=== PATIENT | female | born 1945 | race Caucasian/White ===

== ENCOUNTER → 2016-10-20 | Outpatient (CLI) | payer MEDICARE, OTHER ==
[~2016-10-20] MED LIST: APIX5TAB PO; ASPI-621 PO; CEFD300C2 PO; DENO60DI SQ; DIGO125T PO; FURO-93 PO; GABA300C10 PO; HYDR-3240 PO; HYDR12.53 PO; INSU100V10 SC; INSU100V5 SQ-INSULIN; ISOS20TA3 PO; ISOS60TA36 PO; LACT1CAP24 PO; LAMO100T5 PO; LAMO200T3 PO; LISI-167 PO; LISI-170 PO; LISI-467 PO; METO200T2 PO; METO25TA35 PO; METO50TA82 PO; METR500T PO; NIFE30TA PO; NIFE60TA19 PO; NITR0.4T SL; NPH,100V4 SC; OMEG1CAP12 PO; OMEP20CA9 PO; PRAV80TA PO; PRAV80TA2 PO; ROSU20TA PO; SPIR25TA PO; SPIR25TA3 PO; SPIR50TA2 PO; WARF1TAB PO; WARF2.5T PO; WARF3TAB7 PO-COUM
[2016-10-20 15:41] LABS: HEMOGLOBIN 13.9 g/dL (11.7-16.4)
[2016-10-20 16:00] LABS: C-REACTIVE PROTEIN, QUANT 4.1 mg/dL (0.02-0.49)
== END | disposition home or self-care (01) ==
LOC: CFH 14:52
DX: R10.32 Left lower quadrant pain (principal)
CPT/HCPCS: 36415; 82150; 83690; 85025; 85651; 86140

== ENCOUNTER → 2016-11-19 | Outpatient (CLI) | payer MEDICARE, OTHER ==
[2016-11-19 13:26] LABS: ASPARTATE AMINO TRANSFERASE 38 U/L (15-37); BLOOD UREA NITROGEN 21 mg/dL (7-18)
== END | disposition home or self-care (01) ==
LOC: CFH 10:37
PROVIDERS: ATTEND Internal Medicine Cardiovascular Disease
DX: I10 Essential (primary) hypertension (principal); E11.9 Type 2 diabetes mellitus without complications; E78.2 Mixed hyperlipidemia; E78.5 Hyperlipidemia, unspecified
CPT/HCPCS: 36415; 80053; 80162; 82043; 83036; 85025

== ENCOUNTER → 2016-11-24 | Outpatient (CLI) | payer MEDICARE, OTHER ==
[~2016-11-24] MED LIST changes: -CEFD300C2 PO; +CEFD300C37 PO
== END | disposition home or self-care (01) ==
LOC: CFH 10:13
PROVIDERS: ATTEND Internal Medicine Cardiovascular Disease
DX: J84.10 Pulmonary fibrosis, unspecified (principal); E04.1 Nontoxic single thyroid nodule
CPT/HCPCS: 71250

== ENCOUNTER → 2016-12-02 | Outpatient (CLI) | payer MEDICARE, OTHER | END | disposition home or self-care (01) | LOC: CFH 09:07 | PROVIDERS: ATTEND Registered Nurse | DX: M50.221 Other cervical disc displacement at C4-C5 level (principal); M50.222 Other cervical disc displacement at C5-C6 level; M50.10 Cervical disc disorder with radiculopathy, unspecified cervical region; M48.02 Spinal stenosis, cervical region; M40.292 Other kyphosis, cervical region; M25.78 Osteophyte, vertebrae | CPT/HCPCS: 72141 ==

== ENCOUNTER → 2017-01-15 | Outpatient (CLI) | payer MEDICARE, OTHER | END | disposition home or self-care (01) | LOC: CFH 13:13 → EDSTATUS 13:45 | PROVIDERS: ATTEND Nurse Practitioner Family | DX: Z12.31 Encounter for screening mammogram for malignant neoplasm of breast (principal) | CPT/HCPCS: G0202 ==

== ENCOUNTER 2017-01-31 15:27 | Inpatient (IN) | payer MEDICARE, OTHER ==
[~2017-01-31] VITALS: Ht 167.6 cm; Wt 78.9 kg
[~2017-01-31 15:27] MED LIST changes: -OMEG1CAP12 PO; +OMEG1CAP23 PO
[2017-01-31] MEDS ORDERED: SODIUM CHLORIDE 0.9% 1,000 ML IV ONE (16:19)
[2017-01-31] MEDS ORDERED: ASPIRIN 81 MG TABLET CHEW PO ONE (16:30)
[2017-01-31] MEDS ORDERED: SODIUM CHLORIDE FLUSH 10ML SYR IVF ONE (16:30)
[2017-01-31] MEDS ORDERED: ASPIRIN 81 MG TABLET CHEW ONE (16:57)
[2017-01-31 17:26] LABS: ASPARTATE AMINO TRANSFERASE 41 U/L (15-37); BLOOD UREA NITROGEN 19 mg/dL (7-18)
[2017-01-31 17:32] LABS: IS PT STATUS REG ER OR PRE ER? YES
[2017-01-31 18:03] LABS: PATH.CAST-FLAG NOT PRESENT; SPERM-FLAG NOT PRESENT; SRC-FLAG NOT PRESENT; XTAL-FLAG NOT PRESENT; YLC-FLAG NOT PRESENT
[2017-01-31] MEDS ORDERED: FENO160T PO (18:34)
[2017-01-31] MEDS: INSULIN REGULAR 100 UNITS/ML, 3ML VIAL SQ-INSULIN SCH (19:30)
[2017-01-31] MEDS ORDERED: LORazepam 1MG TABLET PO PRN (19:30)
[2017-01-31] MEDS ORDERED: DOCUSATE 100 MG CAPSULE PO PRN (19:30)
[2017-01-31] MEDS ORDERED: morphine SULFATE 10 MG/ML, 1ML IVPush PRN (19:30)
[2017-01-31] MEDS ORDERED: NITROGLYCERIN 0.4 MG BOTTLE (25 TABS) SL PRN (19:30)
[2017-01-31] MEDS ORDERED: LABETALOL 5MG/ML 40ML VIAL IVPush PRN (19:30)
[2017-01-31] MEDS: LAMOTRIGINE 100 MG TABLET PO SCH (19:30)
[2017-01-31 19:46] VITALS: BP 156/84
[2017-01-31] MEDS: ACETAMINOPHEN 325 MG TABLET PO PRN (20:24)
[2017-01-31] MEDS ORDERED: APIXABAN 5 MG TABLET PO SCH (21:00)
[2017-01-31 22:51] LABS: IS PT STATUS REG ER OR PRE ER? NO
[2017-01-31] MEDS: LAMOTRIGINE 200 MG TABLET PO SCH (23:07)
[2017-01-31] MEDS: ATORVASTATIN 40 MG TABLET PO SCH (23:07)
[2017-01-31] MEDS: METOPROLOL TARTRATE 25 MG TABLET PO SCH (23:07)
[2017-01-31] MEDS: GABAPENTIN 300 MG CAPSULE PO SCH (23:08)
[2017-01-31] MEDS: SODIUM CHLORIDE 0.9% 1,000 ML IV SCH (23:09)
[2017-01-31] MEDS: ONDANSETRON 2MG/ML, 2ML IVPush PRN (23:14)
[2017-02-01 00:50] VITALS: BP 145/76
[2017-02-01] MEDS: HYDROcodone/APAP 5/325 TABLET PO PRN ×2 (00:55→13:06)
[2017-02-01] MEDS ORDERED: HEPARIN MC SCH (01:00)
[2017-02-01] MEDS ORDERED: HEPARIN 25,000 UNITS/500ML PMX 500 ML IV PRN (01:00)
[2017-02-01] MEDS ORDERED: HEPARIN 5,000 UNITS/ML, 1ML IV ONE (01:00)
[2017-02-01] MEDS ORDERED: HEPARIN 5,000 UNITS/ML, 1ML IV PRN (01:00)
[2017-02-01] MEDS: TEMAZEPAM 15 MG CAPSULE PO PRN ×2 (03:09→22:05)
[2017-02-01 04:56] LABS: BLOOD UREA NITROGEN 17 mg/dL (7-18)
[2017-02-01 05:02] LABS: IS PT STATUS REG ER OR PRE ER? NO
[2017-02-01] MEDS: INSULIN REGULAR 100 UNITS/ML, 3ML VIAL SQ-INSULIN SCH ×2 (08:00→20:12)
[2017-02-01] MEDS: FENOFIBRATE 145 MG TABLET PO SCH (08:49)
[2017-02-01] MEDS: LISINOPRIL 20 MG TABLET PO SCH (08:49)
[2017-02-01] MEDS: niFEDipine ER 60 MG TABLET.ER PO SCH (08:49)
[2017-02-01] MEDS: GABAPENTIN 300 MG CAPSULE PO SCH ×3 (08:49→20:02)
[2017-02-01] MEDS: HYDROCHLOROTHIAZIDE 12.5 MG CAPSULE PO SCH (08:50)
[2017-02-01] MEDS: METOPROLOL TARTRATE 25 MG TABLET PO SCH ×2 (08:50→20:02)
[2017-02-01] MEDS: DIGOXIN 0.125 MG TABLET PO SCH (08:50)
[2017-02-01] MEDS: ISOSORBIDE MONONITRATE ER 60 MG TABLET PO SCH (08:50)
[2017-02-01] MEDS: LAMOTRIGINE 100 MG TABLET PO SCH (08:50)
[2017-02-01 08:53] VITALS: BP 140/88
[2017-02-01] MEDS: CEFTRIAXONE PMX 2GM/50ML 50 ML IV SCH (13:06)
[2017-02-01] MEDS: SODIUM CHLORIDE 0.9% 1,000 ML IV SCH (13:06)
[2017-02-01 14:06] VITALS: BP 132/70
[2017-02-01] MEDS: ONDANSETRON 2MG/ML, 2ML IVPush PRN (18:17)
[2017-02-01 19:49] VITALS: BP 127/72
[2017-02-01] MEDS: LAMOTRIGINE 200 MG TABLET PO SCH (20:02)
[2017-02-01] MEDS: APIXABAN 5 MG TABLET PO SCH (20:02)
[2017-02-01] MEDS: ATORVASTATIN 40 MG TABLET PO SCH (20:02)
[2017-02-02] MEDS: SODIUM CHLORIDE 0.9% 1,000 ML IV SCH ×2 (01:21→15:43)
[2017-02-02 01:24] VITALS: BP 113/74
[2017-02-02 06:55] VITALS: BP 156/72
[2017-02-02] MEDS: INSULIN REGULAR 100 UNITS/ML, 3ML VIAL SQ-INSULIN SCH ×2 (09:18→16:49)
[2017-02-02] MEDS: LAMOTRIGINE 100 MG TABLET PO SCH (09:18)
[2017-02-02] MEDS: ISOSORBIDE MONONITRATE ER 60 MG TABLET PO SCH (09:18)
[2017-02-02] MEDS: METOPROLOL TARTRATE 25 MG TABLET PO SCH ×2 (09:19→21:35)
[2017-02-02] MEDS: HYDROCHLOROTHIAZIDE 12.5 MG CAPSULE PO SCH (09:19)
[2017-02-02] MEDS: DIGOXIN 0.125 MG TABLET PO SCH (09:19)
[2017-02-02] MEDS: APIXABAN 5 MG TABLET PO SCH ×2 (09:19→21:34)
[2017-02-02] MEDS: FENOFIBRATE 145 MG TABLET PO SCH (09:19)
[2017-02-02] MEDS: niFEDipine ER 60 MG TABLET.ER PO SCH (09:20)
[2017-02-02] MEDS: LISINOPRIL 20 MG TABLET PO SCH (09:20)
[2017-02-02] MEDS: GABAPENTIN 300 MG CAPSULE PO SCH ×3 (09:20→21:34)
[2017-02-02] MEDS: CEFTRIAXONE PMX 2GM/50ML 50 ML IV SCH (12:30)
[2017-02-02 12:38] VITALS: BP 145/85
[2017-02-02] MEDS: AMLODIPINE 2.5 MG TABLET PO SCH (13:06)
[2017-02-02 17:42] VITALS: BP 146/64
[2017-02-02] MEDS: ACETAMINOPHEN 325 MG TABLET PO PRN (18:02)
[2017-02-02 20:39] VITALS: BP 123/66
[2017-02-02] MEDS: ATORVASTATIN 40 MG TABLET PO SCH (21:34)
[2017-02-02] MEDS: LAMOTRIGINE 200 MG TABLET PO SCH (21:34)
[2017-02-02] MEDS: TEMAZEPAM 15 MG CAPSULE PO PRN (21:36)
[2017-02-03 01:13] VITALS: BP 142/77
[2017-02-03] MEDS: TEMAZEPAM 15 MG CAPSULE PO PRN (01:18)
[2017-02-03] MEDS: SODIUM CHLORIDE 0.9% 1,000 ML IV SCH (04:26)
[2017-02-03] MEDS: APIXABAN 5 MG TABLET PO SCH (08:12)
[2017-02-03] MEDS: niFEDipine ER 60 MG TABLET.ER PO SCH (08:12)
[2017-02-03] MEDS: DIGOXIN 0.125 MG TABLET PO SCH (08:12)
[2017-02-03] MEDS: LISINOPRIL 20 MG TABLET PO SCH (08:13)
[2017-02-03] MEDS: GABAPENTIN 300 MG CAPSULE PO SCH (08:13)
[2017-02-03] MEDS: METOPROLOL TARTRATE 25 MG TABLET PO SCH (08:13)
[2017-02-03] MEDS: AMLODIPINE 2.5 MG TABLET PO SCH (08:13)
[2017-02-03] MEDS: ISOSORBIDE MONONITRATE ER 60 MG TABLET PO SCH (08:13)
[2017-02-03] MEDS: FENOFIBRATE 145 MG TABLET PO SCH (08:13)
[2017-02-03] MEDS: INSULIN REGULAR 100 UNITS/ML, 3ML VIAL SQ-INSULIN SCH (08:14)
[2017-02-03] MEDS: LAMOTRIGINE 100 MG TABLET PO SCH (08:14)
[2017-02-03] MEDS: HYDROCHLOROTHIAZIDE 12.5 MG CAPSULE PO SCH (08:16)
[2017-02-03 09:08] VITALS: BP 140/75
[2017-02-03] MEDS: ACETAMINOPHEN 325 MG TABLET PO PRN (11:47)
[2017-02-03] MEDS: CEFTRIAXONE PMX 2GM/50ML 50 ML IV SCH (11:47)
== END 2017-02-03 15:55 | disposition home or self-care (01) | DRG 308 ==
LOC: ED 18:42 → EDIP 18:46 → INTOOBSV 18:46 → 5SO 19:37 → OBSVTOIN 02-01 09:04 → DCLOUNGE 02-03 15:13
PROVIDERS: ADMIT Internal Medicine; ATTEND Internal Medicine
DX: I48.2 Chronic atrial fibrillation (principal); N17.0 Acute kidney failure with tubular necrosis; D68.69 Other thrombophilia; I13.0 Hypertensive heart and chronic kidney disease with heart failure and stage 1 through stage 4 chronic kidney disease, or unspecified chronic kidney disease; F33.1 Major depressive disorder, recurrent, moderate; I50.32 Chronic diastolic (congestive) heart failure; N39.0 Urinary tract infection, site not specified; K57.92 Diverticulitis of intestine, part unspecified, without perforation or abscess without bleeding; I25.111 Atherosclerotic heart disease of native coronary artery with angina pectoris with documented spasm; I48.92 Unspecified atrial flutter; I42.9 Cardiomyopathy, unspecified; K21.9 Gastro-esophageal reflux disease without esophagitis; E11.21 Type 2 diabetes mellitus with diabetic nephropathy; E11.22 Type 2 diabetes mellitus with diabetic chronic kidney disease; E78.5 Hyperlipidemia, unspecified; I34.0 Nonrheumatic mitral (valve) insufficiency; F41.9 Anxiety disorder, unspecified; N18.3 Chronic kidney disease, stage 3 (moderate); F17.200 Nicotine dependence, unspecified, uncomplicated; Z79.01 Long term (current) use of anticoagulants; I25.2 Old myocardial infarction; Z90.722 Acquired absence of ovaries, bilateral; Z90.710 Acquired absence of both cervix and uterus; Z90.49 Acquired absence of other specified parts of digestive tract; Z88.8 Allergy status to other drugs, medicaments and biological substances; Z88.6 Allergy status to analgesic agent; Z83.3 Family history of diabetes mellitus; Z82.5 Family history of asthma and other chronic lower respiratory diseases; Z82.49 Family history of ischemic heart disease and other diseases of the circulatory system
CPT/HCPCS: 36415; 71020; 80048; 80053; 80061; 80162; 81001; 82962; 83036; 83690; 83735; 83880; 84100; 84436; 84439; 84443; 84484; 85025; 85520; 85610; 85730; 87040; 87086; 93005; 93306; 96360; G0378; J0696; J1815; J2405; J2270; J7030

== ENCOUNTER → 2017-02-05 | Outpatient (CLI) | payer MEDICARE, OTHER ==
[~2017-02-05] MED LIST changes: +FENO160T PO
[2017-02-05 15:46] LABS: BLOOD UREA NITROGEN 20 mg/dL (7-18)
[2017-02-05 15:58] LABS: ASPARTATE AMINO TRANSFERASE 32 U/L (15-37)
== END ==
LOC: CFH 13:56
PROVIDERS: ATTEND Internal Medicine Nephrology
DX: I12.9 Hypertensive chronic kidney disease with stage 1 through stage 4 chronic kidney disease, or unspecified chronic kidney disease (principal); E11.22 Type 2 diabetes mellitus with diabetic chronic kidney disease; N18.3 Chronic kidney disease, stage 3 (moderate); R80.3 Bence Jones proteinuria; I48.2 Chronic atrial fibrillation
CPT/HCPCS: 36415; 80053; 81001; 82570; 83735; 84100; 84156; 85025

== ENCOUNTER 2017-03-18 13:21 | Inpatient (IN) | payer MEDICARE, OTHER ==
[~2017-03-18] VITALS: Ht 167.6 cm; Wt 77.3 kg
[~2017-03-18 13:21] MED LIST changes: -INSU100V10 SC; +INSU100V11 SC; -NPH,100V4 SC; +NPH,100V5 SC
[2017-03-18] MEDS ORDERED: ONDANSETRON 2MG/ML, 2ML ONE (13:55)
[2017-03-18] MEDS ORDERED: ONDANSETRON 2MG/ML, 2ML IVPush ONE (14:00)
[2017-03-18 14:08] LABS: HEMATOCRIT 46.6 % (34.6-47.8); HEMOGLOBIN 15.4 g/dL (11.7-16.4); WHITE BLOOD COUNT 7.9 x10^3/uL (3.4-10)
[2017-03-18 14:17] LABS: ASPARTATE AMINO TRANSFERASE 28 U/L (15-37); BLOOD UREA NITROGEN 12 mg/dL (7-18)
[2017-03-18 14:21] LABS: IS PT STATUS REG ER OR PRE ER? YES
[2017-03-18 16:59] VITALS: BP 168/83
[2017-03-18] MEDS ORDERED: ACETAMINOPHEN 325 MG TABLET PO PRN (17:00)
[2017-03-18] MEDS ORDERED: POLYETHYLENE GLYCOL 17 GM PACKET PO PRN (17:00)
[2017-03-18] MEDS ORDERED: NITROGLYCERIN 0.4 MG BOTTLE (25 TABS) SL PRN (17:00)
[2017-03-18] MEDS ORDERED: DOCUSATE 100 MG CAPSULE PO PRN (17:00)
[2017-03-18] MEDS ORDERED: morphine SULFATE 10 MG/ML, 1ML IVPush PRN (17:00)
[2017-03-18] MEDS ORDERED: HYDROcodone/APAP 5/325 TABLET PO PRN (17:00)
[2017-03-18] MEDS ORDERED: BISACODYL 10 MG SUPP PR PRN (17:00)
[2017-03-18] MEDS ORDERED: LABETALOL 5MG/ML, 20ML IVPush PRN (17:00)
[2017-03-18] MEDS ORDERED: ONDANSETRON 2MG/ML, 2ML IVPush PRN (17:00)
[2017-03-18 18:05] LABS: IS PT STATUS REG ER OR PRE ER? NO
[2017-03-18 19:37] VITALS: BP 171/77
[2017-03-18] MEDS ORDERED: ATORVASTATIN 40 MG TABLET PO SCH (21:00)
[2017-03-18] MEDS ORDERED: LAMOTRIGINE 200 MG TABLET PO SCH (21:00)
[2017-03-18] MEDS: METOPROLOL TARTRATE 25 MG TABLET PO SCH (21:34)
[2017-03-18] MEDS: GABAPENTIN 300 MG CAPSULE PO SCH (21:35)
[2017-03-18] MEDS: APIXABAN 5 MG TABLET PO SCH (21:35)
[2017-03-18] MEDS: AMLODIPINE 5 MG TABLET PO SCH (21:35)
[2017-03-18] MEDS: RANOLAZINE 500 MG TAB.ER.12H PO SCH (21:35)
[2017-03-18] MEDS: SODIUM CHLORIDE FLUSH 10ML SYR IVF SCH (21:36)
[2017-03-18 22:31] LABS: PATH.CAST-FLAG NOT PRESENT; SPERM-FLAG NOT PRESENT; SRC-FLAG NOT PRESENT; XTAL-FLAG NOT PRESENT; YLC-FLAG NOT PRESENT
[2017-03-18 22:58] LABS: IS PT STATUS REG ER OR PRE ER? NO
[2017-03-18] MEDS ORDERED: CEFTRIAXONE PMX 1GM/50ML 50 ML IV SCH (23:30)
[2017-03-19 02:01] VITALS: BP 152/69
[2017-03-19 06:36] LABS: BLOOD UREA NITROGEN 12 mg/dL (7-18)
[2017-03-19 06:50] VITALS: BP 151/77
[2017-03-19] MEDS ORDERED: LAMOTRIGINE 100 MG TABLET PO SCH (07:30)
[2017-03-19] MEDS: AMLODIPINE 5 MG TABLET PO SCH (08:15)
[2017-03-19] MEDS: RANOLAZINE 500 MG TAB.ER.12H PO SCH (08:15)
[2017-03-19] MEDS: GABAPENTIN 300 MG CAPSULE PO SCH ×2 (08:15→15:42)
[2017-03-19] MEDS: METOPROLOL TARTRATE 25 MG TABLET PO SCH (08:15)
[2017-03-19] MEDS: APIXABAN 5 MG TABLET PO SCH (08:16)
[2017-03-19] MEDS: SODIUM CHLORIDE FLUSH 10ML SYR IVF SCH (08:16)
[2017-03-19] MEDS ORDERED: DIGOXIN 0.125 MG TABLET PO SCH (09:00)
[2017-03-19] MEDS ORDERED: POTASSIUM CHLORIDE 20 MEQ TAB.ER.PRT PO ONE (09:00)
[2017-03-19] MEDS ORDERED: AMLODIPINE 5 MG TABLET PO SCH (09:00)
[2017-03-19] MEDS ORDERED: FENOFIBRATE 145 MG TABLET PO SCH (09:00)
[2017-03-19] MEDS ORDERED: ISOSORBIDE MONONITRATE ER 60 MG TABLET PO SCH ×2 (09:00→11:30)
[2017-03-19] MEDS ORDERED: REGADENOSON 0.4 MG/5 ML SYRINGE ONE (09:34)
[2017-03-19 13:05] VITALS: BP 157/88
[2017-03-19] MEDS ORDERED: AMLO5TAB2 PO (15:07)
[2017-03-19] MEDS ORDERED: HYDR-3341 PO (15:07)
[2017-03-19] MEDS ORDERED: RANO500T2 PO (15:07)
[2017-03-19] MEDS ORDERED: ISOS60TA36 PO (15:07)
== END 2017-03-19 16:32 | disposition home or self-care (01) | DRG 292 ==
LOC: ED 14:10 → EDIP 15:32 → 5SO 17:03 → DCLOUNGE 03-19 15:54
DX: I13.0 Hypertensive heart and chronic kidney disease with heart failure and stage 1 through stage 4 chronic kidney disease, or unspecified chronic kidney disease (principal); D68.69 Other thrombophilia; E11.22 Type 2 diabetes mellitus with diabetic chronic kidney disease; I42.9 Cardiomyopathy, unspecified; N18.3 Chronic kidney disease, stage 3 (moderate); E11.65 Type 2 diabetes mellitus with hyperglycemia; E11.51 Type 2 diabetes mellitus with diabetic peripheral angiopathy without gangrene; I50.42 Chronic combined systolic (congestive) and diastolic (congestive) heart failure; N39.0 Urinary tract infection, site not specified; I25.111 Atherosclerotic heart disease of native coronary artery with angina pectoris with documented spasm; I48.2 Chronic atrial fibrillation; I34.0 Nonrheumatic mitral (valve) insufficiency; E78.5 Hyperlipidemia, unspecified; I05.9 Rheumatic mitral valve disease, unspecified; K21.9 Gastro-esophageal reflux disease without esophagitis; Z66 Do not resuscitate; I25.2 Old myocardial infarction; Z79.4 Long term (current) use of insulin; Z83.3 Family history of diabetes mellitus; Z87.891 Personal history of nicotine dependence; Z90.710 Acquired absence of both cervix and uterus
CPT/HCPCS: 36415; 71010; 78452; 80048; 80053; 80061; 80162; 81001; 82962; 83880; 84484; 85025; 85610; 85730; 87040; 87086; 93005; 93017; 96374; J0696; J2405; J2785; A9502; C9898

== ENCOUNTER → 2017-04-07 | Outpatient (CLI) | payer MEDICARE, OTHER ==
[~2017-04-07] MED LIST changes: +AMLO5TAB2 PO; +HYDR-3341 PO; +RANO500T2 PO
== END | disposition home or self-care (01) ==
LOC: CFH 12:02
PROVIDERS: ATTEND Internal Medicine
DX: N39.0 Urinary tract infection, site not specified (principal)
CPT/HCPCS: 81001

== ENCOUNTER 2017-04-16 08:40 | Emergency (ER) | payer MEDICARE, OTHER ==
[~2017-04-16] VITALS: Ht 167.6 cm; Wt 76.4 kg
[2017-04-16 10:16] VITALS: BP 113/67
== END 2017-04-16 10:19 | disposition home or self-care (01) ==
LOC: ED 09:41
DX: S16.1XXA Strain of muscle, fascia and tendon at neck level, initial encounter (principal); S09.90XA Unspecified injury of head, initial encounter; E78.00 Pure hypercholesterolemia, unspecified; I13.0 Hypertensive heart and chronic kidney disease with heart failure and stage 1 through stage 4 chronic kidney disease, or unspecified chronic kidney disease; E11.22 Type 2 diabetes mellitus with diabetic chronic kidney disease; N18.3 Chronic kidney disease, stage 3 (moderate); I50.9 Heart failure, unspecified; K21.9 Gastro-esophageal reflux disease without esophagitis; W01.190A Fall on same level from slipping, tripping and stumbling with subsequent striking against furniture, initial encounter; Y93.89 Activity, other specified; Y92.89 Other specified places as the place of occurrence of the external cause; Y99.8 Other external cause status
CPT/HCPCS: 70450; 72125; 99284

== ENCOUNTER → 2017-06-22 | Outpatient (CLI) | payer MEDICARE, OTHER ==
[~2017-06-22] MED LIST changes: +OMNIPAQUE 350 MG/ML, 100ML BOTTLE ONE
[2017-06-22 12:37] LABS: HEMATOCRIT 48.5 % (34.6-47.8); HEMOGLOBIN 16.1 g/dL (11.7-16.4); WHITE BLOOD COUNT 8.2 x10^3/uL (3.4-10)
[2017-06-22 12:58] LABS: BLOOD UREA NITROGEN 15 mg/dL (7-18)
[2017-06-22 14:23] LABS: ASPARTATE AMINO TRANSFERASE 22 U/L (15-37)
== END | disposition home or self-care (01) ==
LOC: CFH 09:54
PROVIDERS: ATTEND Nurse Practitioner
DX: K57.30 Diverticulosis of large intestine without perforation or abscess without bleeding (principal); K80.20 Calculus of gallbladder without cholecystitis without obstruction; N28.1 Cyst of kidney, acquired; M48.56XA Collapsed vertebra, not elsewhere classified, lumbar region, initial encounter for fracture; M47.896 Other spondylosis, lumbar region; M95.4 Acquired deformity of chest and rib; Z90.89 Acquired absence of other organs; Z90.710 Acquired absence of both cervix and uterus
CPT/HCPCS: 36415; 74177; 80053; 80162; 81001; 82150; 82565; 83690; 85025; 87086; Q9967

== ENCOUNTER → 2017-09-07 | Outpatient (CLI) | payer MEDICARE, OTHER ==
[~2017-09-07] MED LIST changes: -OMNIPAQUE 350 MG/ML, 100ML BOTTLE ONE
[2017-09-07 15:35] LABS: BASOPHILS # (AUTO) 0.05 x10^3/uL (0-0.1); BASOPHILS % (AUTO) 1 % (0-1); EOSINOPHILS # (AUTO) 0.16 x10^3/uL (0-0.4); EOSINOPHILS % (AUTO) 2 % (1-7); LYMPHOCYTES # (AUTO) 2.81 x10^3/uL (1-3.4); LYMPHOCYTES % (AUTO) 29 % (22-44); MD NO; MEAN CORPUSCULAR HEMOGLOBIN 29.1 pg (27.0-34.8); MEAN CORPUSCULAR VOLUME 88.3 fL (80-100); MEAN PLATELET VOLUME 8.5 fL (7.4-10.4); MONOCYTES # (AUTO) 0.62 x10^3/uL (0.2-0.8); MONOCYTES % (AUTO) 6 % (2-9); NEUTROPHILS # (AUTO) 6.05 x10^3/uL (1.8-6.8); NEUTROPHILS % (AUTO) 63 % (42-75); PLATELET COUNT 313 x10^3/uL (130-400); RED BLOOD COUNT 5.36 x10^6/uL (3.82-5.3); RED CELL DISTRIBUTION WIDTH 13.8 % (9.6-15.2)
[2017-09-07 15:50] LABS: ALANINE AMINOTRANSFERASE 29 U/L (12-78); ALBUMIN 3.7 g/dL (3.4-5.0); ANION GAP 7 mmol/L (5-15); CALCIUM 9.6 mg/dL (8.5-10.1); CHLORIDE 106 mmol/L (98-107)
[2017-09-07 15:53] LABS: ALKALINE PHOSPHATASE 70 U/L (45-117); BILIRUBIN,TOTAL 0.7 mg/dL (0.2-1.0); CHOLESTEROL, TOTAL 127 mg/dL (140-239); HDL CHOL % 50 % (28-40); HDL CHOLESTEROL (DIRECT) 64 mg/dL (40-60); LDL CHOLESTEROL,CALCULATED 39 mg/dL (54-169); LDL/HDL RATIO 0.6 (0.5-3.0); TOTAL PROTEIN 7.1 g/dL (6.4-8.2); TRIGLYCERIDES 121 mg/dL (50-200); VLDL CHOLESTEROL 24 mg/dL (0-25)
[2017-09-07 15:56] LABS: HEMOGLOBIN A1C 6.6 % (4.2-6.3)
== END | disposition home or self-care (01) ==
LOC: CFH 12:47
PROVIDERS: ATTEND Internal Medicine Cardiovascular Disease
DX: E11.21 Type 2 diabetes mellitus with diabetic nephropathy (principal); I10 Essential (primary) hypertension; I34.0 Nonrheumatic mitral (valve) insufficiency; I48.2 Chronic atrial fibrillation; Z79.01 Long term (current) use of anticoagulants
CPT/HCPCS: 36415; 80053; 80061; 82043; 82570; 83036; 85025

== ENCOUNTER → 2017-12-13 | Outpatient (CLI) | payer MEDICARE, OTHER ==
[~2017-12-13] MED LIST changes: +ASPI-515 PO; +METO-93 PO; +ONDA8TAB12 PO; +TRAM50TA2 PO; +WARF3TAB52 PO-COUM; -WARF3TAB7 PO-COUM
== END | disposition home or self-care (01) ==
LOC: CFH 10:12
PROVIDERS: ATTEND Internal Medicine Cardiovascular Disease
DX: E03.9 Hypothyroidism, unspecified (principal); E78.2 Mixed hyperlipidemia; I10 Essential (primary) hypertension; I48.2 Chronic atrial fibrillation; R79.89 Other specified abnormal findings of blood chemistry
CPT/HCPCS: 36415; 80053; 80061; 83036; 84436; 84443; 84481; 85025

== ENCOUNTER → 2017-12-17 | Outpatient (CLI) | payer MEDICARE, OTHER ==
[2017-12-13 12:38] LABS: BASOPHILS # (AUTO) 0.04 x10^3/uL (0-0.1); BASOPHILS % (AUTO) 0 % (0-1); EOSINOPHILS # (AUTO) 0.23 x10^3/uL (0-0.4); EOSINOPHILS % (AUTO) 3 % (1-7); LYMPHOCYTES # (AUTO) 2.23 x10^3/uL (1-3.4); LYMPHOCYTES % (AUTO) 25 % (22-44); MD NO; MEAN CORPUSCULAR HEMOGLOBIN 29.8 pg (27.0-34.8); MEAN CORPUSCULAR HGB CONC 33.5 g/dL (32.4-35.8); MEAN CORPUSCULAR VOLUME 88.9 fL (80-100); MEAN PLATELET VOLUME 8.5 fL (7.4-10.4); MONOCYTES # (AUTO) 0.62 x10^3/uL (0.2-0.8); MONOCYTES % (AUTO) 7 % (2-9); NEUTROPHILS # (AUTO) 5.87 x10^3/uL (1.8-6.8); NEUTROPHILS % (AUTO) 65 % (42-75); PLATELET COUNT 309 x10^3/uL (130-400); RED BLOOD COUNT 4.95 x10^6/uL (3.82-5.3); RED CELL DISTRIBUTION WIDTH 13.1 % (9.6-15.2)
[2017-12-13 12:50] LABS: CHLORIDE 109 mmol/L (98-107)
[2017-12-13 12:57] LABS: HEMOGLOBIN A1C 7.5 % (4.2-6.3)
[2017-12-13 13:02] LABS: ALANINE AMINOTRANSFERASE 30 U/L (12-78); ALBUMIN 3.5 g/dL (3.4-5.0); ALKALINE PHOSPHATASE 74 U/L (45-117); ANION GAP 6 mmol/L (5-15); BILIRUBIN,TOTAL 0.4 mg/dL (0.2-1.0); CALCIUM 9.1 mg/dL (8.5-10.1); CHOL/HDL RATIO 2.8; CHOLESTEROL, TOTAL 141 mg/dL (140-239); CREATININE 1.38 mg/dL (0.55-1.02); HDL CHOL % 35 % (28-40); HDL CHOLESTEROL (DIRECT) 50 mg/dL (40-60); LDL CHOLESTEROL,CALCULATED 64 mg/dL (54-169); LDL/HDL RATIO 1.3 (0.5-3.0); T4 (THYROXINE) 9.4 mcg/dL (4.8-13.9); TOTAL PROTEIN 6.7 g/dL (6.4-8.2); TRIGLYCERIDES 137 mg/dL (50-200); VLDL CHOLESTEROL 27 mg/dL (0-25)
== END ==
LOC: RAD 11:00
PROVIDERS: ATTEND Nurse Practitioner Critical Care Medicine
DX: M48.02 Spinal stenosis, cervical region (principal); M54.12 Radiculopathy, cervical region; G89.29 Other chronic pain; Z98.1 Arthrodesis status
CPT/HCPCS: 36415; 72141; 80053; 80061; 83036; 84436; 84443; 84481; 85025

== ENCOUNTER → 2018-05-09 | Outpatient (CLI) | payer MEDICARE, OTHER ==
[~2018-05-09] MED LIST changes: -AMLO5TAB2 PO; +AMLO5TAB7 PO; -SPIR25TA3 PO; +SPIR25TA5 PO; -SPIR50TA2 PO; +SPIR50TA4 PO
== END | disposition home or self-care (01) ==
LOC: CFH 12:03
PROVIDERS: ATTEND Nurse Practitioner Family
DX: Z12.31 Encounter for screening mammogram for malignant neoplasm of breast (principal); Z13.820 Encounter for screening for osteoporosis; M85.88 Other specified disorders of bone density and structure, other site; N95.8 Other specified menopausal and perimenopausal disorders
CPT/HCPCS: 77080; 77067

== ENCOUNTER 2018-06-13 09:52 | Outpatient (CLI) | payer MEDICARE, OTHER ==
[~2018-06-13 09:52] MED LIST changes: +AMLO-150 PO; -AMLO5TAB7 PO; -ASPI-621 PO; +ASPI81TA45 PO; +HYDR12.517 PO; -HYDR12.53 PO
[2018-06-13 12:37] LABS: BASOPHILS # (AUTO) 0.05 x10^3/uL (0-0.1); BASOPHILS % (AUTO) 1 % (0-1); EOSINOPHILS # (AUTO) 0.13 x10^3/uL (0-0.4); EOSINOPHILS % (AUTO) 1 % (1-7); LYMPHOCYTES # (AUTO) 2.12 x10^3/uL (1-3.4); LYMPHOCYTES % (AUTO) 20 % (22-44); MD NO; MEAN CORPUSCULAR HEMOGLOBIN 29.4 pg (27.0-34.8); MEAN CORPUSCULAR HGB CONC 33.3 g/dL (32.4-35.8); MEAN CORPUSCULAR VOLUME 88.5 fL (80-100); MEAN PLATELET VOLUME 8.3 fL (7.4-10.4); MONOCYTES # (AUTO) 0.62 x10^3/uL (0.2-0.8); MONOCYTES % (AUTO) 6 % (2-9); NEUTROPHILS # (AUTO) 7.95 x10^3/uL (1.8-6.8); NEUTROPHILS % (AUTO) 73 % (42-75); PLATELET COUNT 322 x10^3/uL (130-400); RED BLOOD COUNT 5.63 x10^6/uL (3.82-5.3); RED CELL DISTRIBUTION WIDTH 13.6 % (9.6-15.2)
[2018-06-13 13:15] LABS: CHOL/HDL RATIO 2.4; LDL/HDL RATIO 0.8 (0.5-3.0); T4 (THYROXINE) 12.7 mcg/dL (4.8-13.9); THYROID STIMULATING HORMONE 1.92 mIU/L (0.358-3.740)
== END 2018-06-24 11:00 | disposition home or self-care (01) ==
LOC: CFH 09:52
PROVIDERS: ATTEND Internal Medicine Cardiovascular Disease
DX: E11.21 Type 2 diabetes mellitus with diabetic nephropathy (principal); E66.9 Obesity, unspecified; E87.6 Hypokalemia; I10 Essential (primary) hypertension; I34.0 Nonrheumatic mitral (valve) insufficiency
CPT/HCPCS: 36415; 80061; 80162; 82043; 82570; 84436; 84443; 84481; 85025

== ENCOUNTER → 2018-08-08 | Outpatient (CLI) | payer MEDICARE, OTHER ==
[2018-08-08 13:42] LABS: BASOPHILS # (AUTO) 0.05 x10^3/uL (0-0.1); BASOPHILS % (AUTO) 1 % (0-1); EOSINOPHILS # (AUTO) 0.12 x10^3/uL (0-0.4); EOSINOPHILS % (AUTO) 1 % (1-7); LYMPHOCYTES % (AUTO) 27 % (22-44); MD NO; MEAN CORPUSCULAR HEMOGLOBIN 29.9 pg (27.0-34.8); MEAN CORPUSCULAR HGB CONC 33.7 g/dL (32.4-35.8); MEAN CORPUSCULAR VOLUME 88.9 fL (80-100); MEAN PLATELET VOLUME 8.5 fL (7.4-10.4); MONOCYTES # (AUTO) 0.48 x10^3/uL (0.2-0.8); MONOCYTES % (AUTO) 5 % (2-9); NEUTROPHILS % (AUTO) 66 % (42-75); PLATELET COUNT 296 x10^3/uL (130-400); RED BLOOD COUNT 5.42 x10^6/uL (3.82-5.3); RED CELL DISTRIBUTION WIDTH 13.5 % (9.6-15.2)
[2018-08-08 13:53] LABS: ANION GAP 14 mmol/L (5-15); CALCIUM 10.5 mg/dL (8.5-10.1); CHLORIDE 106 mmol/L (98-107); CREATININE 1.66 mg/dL (0.55-1.02)
== END | disposition home or self-care (01) ==
LOC: CFH 12:51
PROVIDERS: ATTEND Nurse Practitioner Family
DX: R11.2 Nausea with vomiting, unspecified (principal); R63.4 Abnormal weight loss; R82.4 Acetonuria
CPT/HCPCS: 36415; 80048; 85025

== ENCOUNTER → 2018-12-06 | Outpatient (CLI) | payer MEDICARE, OTHER ==
[~2018-12-06] MED LIST changes: +ACET-1600 PO; -ROSU20TA PO; +ROSU20TA2 PO
[2018-12-06 15:31] LABS: BASOPHILS # (AUTO) 0.03 x10^3/uL (0-0.1); BASOPHILS % (AUTO) 0 % (0-1); EOSINOPHILS # (AUTO) 1.26 x10^3/uL (0-0.4); EOSINOPHILS % (AUTO) 13 % (1-7); LYMPHOCYTES % (AUTO) 22 % (22-44); MD NO; MEAN CORPUSCULAR HEMOGLOBIN 29.9 pg (27.0-34.8); MEAN CORPUSCULAR HGB CONC 34.1 g/dL (32.4-35.8); MEAN CORPUSCULAR VOLUME 87.8 fL (80-100); MEAN PLATELET VOLUME 8.1 fL (7.4-10.4); MONOCYTES # (AUTO) 0.64 x10^3/uL (0.2-0.8); MONOCYTES % (AUTO) 7 % (2-9); NEUTROPHILS # (AUTO) 5.43 x10^3/uL (1.8-6.8); NEUTROPHILS % (AUTO) 57 % (42-75); PLATELET COUNT 276 x10^3/uL (130-400); RED BLOOD COUNT 5.08 x10^6/uL (3.82-5.3); RED CELL DISTRIBUTION WIDTH 13.6 % (9.6-15.2)
[2018-12-06 15:41] LABS: ALBUMIN 3.9 g/dL (3.4-5.0); ANION GAP 6 mmol/L (5-15); CALCIUM 10.2 mg/dL (8.5-10.1); CHLORIDE 108 mmol/L (98-107)
[2018-12-06 15:56] LABS: ALANINE AMINOTRANSFERASE 20 U/L (12-78); ALKALINE PHOSPHATASE 60 U/L (45-117); BILIRUBIN,TOTAL 0.5 mg/dL (0.2-1.0); CHOL/HDL RATIO 2.9; CHOLESTEROL, TOTAL 146 mg/dL (140-239); CREATININE 1.73 mg/dL (0.55-1.02); HDL CHOL % 35 % (28-40); HDL CHOLESTEROL (DIRECT) 51 mg/dL (40-60); LDL CHOLESTEROL,CALCULATED 66 mg/dL (54-169); LDL/HDL RATIO 1.3 (0.5-3.0); TOTAL PROTEIN 6.9 g/dL (6.4-8.2); TRIGLYCERIDES 145 mg/dL (50-200); VLDL CHOLESTEROL 29 mg/dL (0-25)
[2018-12-06 16:04] LABS: HEMOGLOBIN A1C 6.1 % (4.2-6.3)
== END | disposition home or self-care (01) ==
LOC: CFH 14:11
PROVIDERS: ATTEND Internal Medicine Cardiovascular Disease
DX: I10 Essential (primary) hypertension (principal); I48.91 Unspecified atrial fibrillation; Z88.8 Allergy status to other drugs, medicaments and biological substances; Z79.899 Other long term (current) drug therapy
CPT/HCPCS: 36415; 80053; 80061; 80162; 82043; 82570; 83036; 85025

== ENCOUNTER 2019-06-05 09:34 | Outpatient (CLI) | payer MEDICARE, OTHER ==
[~2019-06-05 09:34] MED LIST changes: -NITR0.4T SL; +NITR0.4T41 SL
== END 2019-06-05 23:59 | disposition home or self-care (01) ==
LOC: CFH 09:34
PROVIDERS: ATTEND Internal Medicine Cardiovascular Disease
DX: I08.0 Rheumatic disorders of both mitral and aortic valves (principal); I10 Essential (primary) hypertension; I20.9 Angina pectoris, unspecified; E11.9 Type 2 diabetes mellitus without complications; I50.9 Heart failure, unspecified; R07.9 Chest pain, unspecified; I48.91 Unspecified atrial fibrillation; Z87.891 Personal history of nicotine dependence; Z88.8 Allergy status to other drugs, medicaments and biological substances; E78.5 Hyperlipidemia, unspecified; I25.2 Old myocardial infarction
CPT/HCPCS: 93306

== ENCOUNTER 2019-06-13 10:43 | Outpatient (CLI) | payer MEDICARE, OTHER ==
[2019-06-13 12:45] LABS: BASOPHILS # (AUTO) 0.03 x10^3/uL (0-0.1); BASOPHILS % (AUTO) 0 % (0-1); EOSINOPHILS # (AUTO) 0.37 x10^3/uL (0-0.4); EOSINOPHILS % (AUTO) 5 % (1-7); LYMPHOCYTES % (AUTO) 25 % (22-44); MD NO; MEAN CORPUSCULAR HEMOGLOBIN 28.9 pg (27.0-34.8); MEAN CORPUSCULAR HGB CONC 32.3 g/dL (32.4-35.8); MEAN CORPUSCULAR VOLUME 89.4 fL (80-100); MONOCYTES # (AUTO) 0.49 x10^3/uL (0.2-0.8); MONOCYTES % (AUTO) 7 % (2-9); NEUTROPHILS # (AUTO) 4.53 x10^3/uL (1.8-6.8); NEUTROPHILS % (AUTO) 63 % (42-75); PLATELET COUNT 220 x10^3/uL (130-400); RED BLOOD COUNT 4.56 x10^6/uL (3.82-5.3); RED CELL DISTRIBUTION WIDTH 13.6 % (9.6-15.2)
[2019-06-13 13:46] LABS: ALBUMIN 3.7 g/dL (3.4-5.0); CALCIUM 9.1 mg/dL (8.5-10.1); CHLORIDE 112 mmol/L (98-107)
[2019-06-13 13:52] LABS: ALANINE AMINOTRANSFERASE 20 U/L (12-78); ALKALINE PHOSPHATASE 108 U/L (45-117); ANION GAP 3 mmol/L (5-15); BILIRUBIN,TOTAL 0.6 mg/dL (0.2-1.0); CHOL/HDL RATIO 2.1; CHOLESTEROL, TOTAL 184 mg/dL (140-239); CREATININE 1.24 mg/dL (0.55-1.02); HDL CHOL % 47 % (28-40); HDL CHOLESTEROL (DIRECT) 86 mg/dL (40-60); LDL CHOLESTEROL,CALCULATED 84 mg/dL (54-169); TOTAL PROTEIN 6.7 g/dL (6.4-8.2); TRIGLYCERIDES 70 mg/dL (50-200); VLDL CHOLESTEROL 14 mg/dL (0-25)
[2019-06-13 14:01] LABS: HEMOGLOBIN A1C 6.5 % (4.2-6.3)
== END 2019-06-13 23:59 | disposition home or self-care (01) ==
LOC: CFH 10:43
PROVIDERS: ATTEND Internal Medicine Cardiovascular Disease
DX: E11.21 Type 2 diabetes mellitus with diabetic nephropathy (principal); E78.2 Mixed hyperlipidemia; I34.0 Nonrheumatic mitral (valve) insufficiency; I48.20 Chronic atrial fibrillation, unspecified; I48.91 Unspecified atrial fibrillation; I50.32 Chronic diastolic (congestive) heart failure; R13.10 Dysphagia, unspecified; Z79.01 Long term (current) use of anticoagulants
CPT/HCPCS: 36415; 80053; 80061; 83036; 85025

== ENCOUNTER → 2019-08-30 | Outpatient (CLI) | payer MEDICARE, OTHER ==
[~2019-08-30] MED LIST changes: -DIGO125T PO; +DIGO125T85 PO
== END | disposition home or self-care (01) ==
LOC: CFH 10:56
PROVIDERS: ATTEND Nurse Practitioner Family
DX: Z12.31 Encounter for screening mammogram for malignant neoplasm of breast (principal); N64.89 Other specified disorders of breast
CPT/HCPCS: 77067

== ENCOUNTER → 2020-03-29 | Outpatient (CLI) | payer MEDICARE, OTHER ==
[~2020-03-29] MED LIST changes: -WARF1TAB PO; +WARF1TAB2 PO; -WARF2.5T PO; +WARF2.5T2 PO
[2020-03-29 12:46] LABS: BASOPHILS # (AUTO) 0.05 x10^3/uL (0-0.1); BASOPHILS % (AUTO) 1 % (0-1); EOSINOPHILS % (AUTO) 2 % (1-7); LYMPHOCYTES % (AUTO) 17 % (22-44); MD NO; MEAN CORPUSCULAR HEMOGLOBIN 28.6 pg (27.0-34.8); MEAN CORPUSCULAR HGB CONC 31.9 g/dL (32.4-35.8); MEAN CORPUSCULAR VOLUME 89.5 fL (80-100); MEAN PLATELET VOLUME 8.1 fL (7.4-10.4); MONOCYTES # (AUTO) 0.34 x10^3/uL (0.2-0.8); MONOCYTES % (AUTO) 4 % (2-9); NEUTROPHILS # (AUTO) 7.44 x10^3/uL (1.8-6.8); NEUTROPHILS % (AUTO) 77 % (42-75); PLATELET COUNT 243 x10^3/uL (130-400); RED BLOOD COUNT 5.24 x10^6/uL (3.82-5.3); RED CELL DISTRIBUTION WIDTH 13.8 % (9.6-15.2)
[2020-03-29 13:09] LABS: CHLORIDE 109 mmol/L (98-107)
[2020-03-29 13:20] LABS: ALANINE AMINOTRANSFERASE 20 U/L (12-78); ALBUMIN 3.8 g/dL (3.4-5.0); ALKALINE PHOSPHATASE 92 U/L (45-117); ANION GAP 3 mmol/L (5-15); BILIRUBIN,TOTAL 0.5 mg/dL (0.2-1.0); CALCIUM 9.9 mg/dL (8.5-10.1); CHOL/HDL RATIO 2.1; CHOLESTEROL, TOTAL 160 mg/dL (140-239); CREATININE 1.39 mg/dL (0.55-1.02); HDL CHOL % 47 % (28-40); HDL CHOLESTEROL (DIRECT) 75 mg/dL (40-60); LDL CHOLESTEROL,CALCULATED 65 mg/dL (54-169); LDL/HDL RATIO 0.9 (0.5-3.0); TOTAL PROTEIN 7.2 g/dL (6.4-8.2); TRIGLYCERIDES 102 mg/dL (50-200); VLDL CHOLESTEROL 20 mg/dL (0-25)
== END | disposition home or self-care (01) ==
LOC: CFH 10:45
PROVIDERS: ATTEND Internal Medicine Cardiovascular Disease
DX: E11.21 Type 2 diabetes mellitus with diabetic nephropathy (principal); I13.0 Hypertensive heart and chronic kidney disease with heart failure and stage 1 through stage 4 chronic kidney disease, or unspecified chronic kidney disease; E78.2 Mixed hyperlipidemia; E87.6 Hypokalemia; I20.9 Angina pectoris, unspecified; I34.0 Nonrheumatic mitral (valve) insufficiency; I48.19 Other persistent atrial fibrillation; I48.91 Unspecified atrial fibrillation; I50.32 Chronic diastolic (congestive) heart failure; N18.3 Chronic kidney disease, stage 3 (moderate); E11.22 Type 2 diabetes mellitus with diabetic chronic kidney disease
CPT/HCPCS: 36415; 80053; 80061; 82043; 82570; 83036; 85025

== ENCOUNTER → 2020-04-18 | Outpatient (CLI) | payer MEDICARE, OTHER ==
[~2020-04-18] MED LIST changes: +REGADENOSON 0.4 MG/5 ML SYRINGE ONE
== END | disposition home or self-care (01) ==
LOC: CFH 10:50
PROVIDERS: ATTEND Internal Medicine Cardiovascular Disease
DX: I08.0 Rheumatic disorders of both mitral and aortic valves (principal); E78.5 Hyperlipidemia, unspecified; I25.2 Old myocardial infarction; E11.9 Type 2 diabetes mellitus without complications; I48.91 Unspecified atrial fibrillation; I10 Essential (primary) hypertension; Z87.891 Personal history of nicotine dependence; Z79.01 Long term (current) use of anticoagulants
CPT/HCPCS: 78452; 93017; 93306; A9502; J2785

== ENCOUNTER → 2020-09-24 | Outpatient (CLI) | payer MEDICARE, OTHER ==
[~2020-09-24] MED LIST changes: -ASPI-515 PO; +ASPI-963 PO; +HYDR-1067 PO; -HYDR-3240 PO; +ISOS20TA10 PO; -ISOS20TA3 PO; -REGADENOSON 0.4 MG/5 ML SYRINGE ONE
== END | disposition home or self-care (01) ==
LOC: CFH 09:46
PROVIDERS: ATTEND Licensed Practical Nurse
DX: Z12.31 Encounter for screening mammogram for malignant neoplasm of breast (principal); N95.8 Other specified menopausal and perimenopausal disorders; M85.80 Other specified disorders of bone density and structure, unspecified site
CPT/HCPCS: 77063; 77067; 77080

== ENCOUNTER 2021-03-03 12:15 | Outpatient (CLI) | payer MEDICARE, OTHER ==
[~2021-03-03 12:15] MED LIST changes: -HYDR-1067 PO; +HYDR-2214 PO; +LIDOCAINE 1%, 10ML ONE
== END 2021-03-03 23:59 | disposition home or self-care (01) ==
LOC: RAD 12:15
PROVIDERS: ATTEND Nurse Practitioner Family
DX: E04.1 Nontoxic single thyroid nodule (principal)
CPT/HCPCS: 10005; 88173

== ENCOUNTER 2021-04-03 18:29 | Inpatient (IN) | payer MEDICARE, OTHER ==
[~2021-04-03] VITALS: Ht 167.6 cm; Wt 72.3 kg
[~2021-04-03 18:29] MED LIST changes: -LIDOCAINE 1%, 10ML ONE
--- NOTE | 2021-04-03 18:55 | NUR ---
cp x1 week, mid sternal, hx afib, denies dizziness, gross neuro intact, pulses 2+, no edema or lower extremity swelling noted. sob with cp, no radiation or aggravating factor. placed on spo2/bp/ecg monitoring. Patient is resting comfortably in bed. Bed in lowest, rails engaged, call light on lap. Vital Signs within normal limits. WCTM.
[2021-04-03] MEDS ORDERED: SODIUM CHLORIDE FLUSH 10ML SYR IVF ONE (19:00)
[2021-04-03] MEDS ORDERED: NITROGLYCERIN SINGLE TAB 0.4 MG SL PRN (19:00)
[2021-04-03 19:25] LABS: BASOPHILS % (AUTO) 1 % (0-1); EOSINOPHILS % (AUTO) 1 % (1-7); LYMPHOCYTES % (AUTO) 25 % (22-44); MEAN CORPUSCULAR HEMOGLOBIN 29.5 pg (27.0-34.8); MEAN CORPUSCULAR HGB CONC 32.7 g/dL (32.4-35.8); MEAN PLATELET VOLUME 8.2 fL (7.4-10.4); MONOCYTES % (AUTO) 10 % (2-9); NEUTROPHILS % (AUTO) 63 % (42-75); PLATELET COUNT 250 x10^3/uL (130-400); RED BLOOD COUNT 5.97 x10^6/uL (3.82-5.3); RED CELL DISTRIBUTION WIDTH 13.9 % (9.6-15.2)
[2021-04-03 19:37] LABS: ALBUMIN 3.7 g/dL (3.4-5.0); ANION GAP 8 mmol/L (5-15); CALCIUM 10.2 mg/dL (8.5-10.1); CHLORIDE 108 mmol/L (98-107); CREATININE 1.89 mg/dL (0.55-1.02)
[2021-04-03 19:50] LABS: TROPONIN I 0.509 ng/mL (0.000-0.045)
[2021-04-03] MEDS ORDERED: NITROGLYCERIN SINGLE TAB 0.4 MG SL ONE (19:52)
--- NOTE | 2021-04-03 19:55 | NUR ---
pt medicated per mar, nad, resting on gurney, denies additional questions or needs, updated on poc, wctm. Patient is resting comfortably in bed. Bed in lowest, rails engaged, call light on lap.
[2021-04-03] MEDS ORDERED: SPIR25TA5 PO (20:05)
[2021-04-03] MEDS ORDERED: OMEP-110 PO (20:05)
[2021-04-03] MEDS ORDERED: INSU100V35 SC (20:05)
[2021-04-03] MEDS ORDERED: SEMA0.25 SC (20:05)
[2021-04-03] MEDS ORDERED: metoprolol PO (20:08)
[2021-04-03] MEDS ORDERED: FURO20TA3 PO (20:08)
[2021-04-03] MEDS ORDERED: LISI-170 PO (20:08)
[2021-04-03] MEDS ORDERED: NITROGLYCERIN OINT 2%, 1GM TP ONE ×2 (20:57→21:00)
[2021-04-03] MEDS ORDERED: HEPARIN 25,000 UNITS/250ML PMX 250 ML IV PRN (21:00)
[2021-04-03] MEDS ORDERED: HEPARIN 5,000 UNITS/ML, 1ML IV ONE (21:00)
[2021-04-03] MEDS ORDERED: HEPARIN 5,000 UNITS/ML, 1ML IV PRN (21:00)
[2021-04-03] MEDS ORDERED: ONDANSETRON 2MG/ML, 2ML ONE (21:52)
[2021-04-03] MEDS ORDERED: morphine SULFATE 10 MG/ML, 1ML IV PRN (22:00)
[2021-04-03] MEDS ORDERED: NITROGLYCERIN 0.4 MG/SPRAY SL PRN (22:00)
[2021-04-03] MEDS ORDERED: NITROGLYCERIN 0.4 MG BOTTLE (25 TABS) SL PRN (22:00)
[2021-04-03] MEDS ORDERED: ONDANSETRON 2MG/ML, 2ML IVPush ONE (22:00)
[2021-04-03] MEDS ORDERED: ASPIRIN 81 MG TABLET EC PO ONE (22:00)
[2021-04-03] MEDS ORDERED: ASPIRIN 325 MG TABLET EC PO ONE (22:00)
[2021-04-03] MEDS ORDERED: BISACODYL 5 MG EC TABLET PO PRN (22:00)
[2021-04-03] MEDS ORDERED: ACETAMINOPHEN 325 MG TABLET PO PRN (22:00)
[2021-04-03 23:17] LABS: CHOLESTEROL, TOTAL 222 mg/dL (140-239); TRIGLYCERIDES 197 mg/dL (50-200); VLDL CHOLESTEROL 39 mg/dL (0-25)
[2021-04-03 23:19] LABS: CHOL/HDL RATIO 4.1; HDL CHOL % 24 % (28-40); HDL CHOLESTEROL (DIRECT) 54 mg/dL (40-60); LDL CHOLESTEROL,CALCULATED 129 mg/dL (54-169); LDL/HDL RATIO 2.4 (0.5-3.0)
[2021-04-03 23:20] LABS: TROPONIN I 0.478 ng/mL (0.000-0.045)
[2021-04-03 23:45] VITALS: BP 155/79
[2021-04-04] MEDS: SODIUM CHLORIDE FLUSH 10ML SYR IVF SCH ×3 (01:05→21:15)
[2021-04-04 01:15] VITALS: BP 109/62
[2021-04-04 01:57] LABS: TROPONIN I 0.464 ng/mL (0.000-0.045)
[2021-04-04] MEDS: ASPIRIN 81 MG TABLET EC PO SCH (05:53)
[2021-04-04 05:58] LABS: MEAN CORPUSCULAR HEMOGLOBIN 30.3 pg (27.0-34.8); MEAN PLATELET VOLUME 8.9 fL (7.4-10.4); PLATELET COUNT 221 x10^3/uL (130-400); RED CELL DISTRIBUTION WIDTH 13.9 % (9.6-15.2)
[2021-04-04 06:12] LABS: CHLORIDE 106 mmol/L (98-107)
[2021-04-04 06:21] LABS: ANION GAP 8 mmol/L (5-15); CREATININE 1.92 mg/dL (0.55-1.02)
[2021-04-04 07:20] VITALS: BP 115/62
[2021-04-04 11:09] VITALS: BP 152/70
[2021-04-04] MEDS: APIXABAN 5 MG TABLET PO SCH ×2 (11:48→21:15)
[2021-04-04] MEDS: METOPROLOL SUCCINATE 50 MG TAB.ER.24H PO SCH (11:48)
[2021-04-04 14:01] VITALS: BP 124/62
[2021-04-04] MEDS ORDERED: GABAPENTIN 300 MG CAPSULE PO PRN (15:00)
[2021-04-04] MEDS ORDERED: OZEMPIC MC SCH (15:30)
[2021-04-04 16:00] LABS: FREE T4 (FREE THYROXINE) 1.47 ng/dL (0.76-1.46)
[2021-04-04] MEDS: INSULIN LISPRO 100 UNITS/ML, PEN SQ-INSULIN SCH ×2 (18:17→21:00)
[2021-04-04 20:13] VITALS: BP 110/70
[2021-04-04] MEDS: ATORVASTATIN 80 MG TABLET PO SCH (21:14)
[2021-04-05 02:30] VITALS: BP 141/66
[2021-04-05] MEDS: METOPROLOL SUCCINATE 50 MG TAB.ER.24H PO SCH (05:32)
[2021-04-05] MEDS: ASPIRIN 81 MG TABLET EC PO SCH (05:32)
[2021-04-05 05:58] LABS: BASOPHILS % (AUTO) 1 % (0-1); EOSINOPHILS % (AUTO) 2 % (1-7); LYMPHOCYTES % (AUTO) 28 % (22-44); MEAN CORPUSCULAR HEMOGLOBIN 30.1 pg (27.0-34.8); MEAN CORPUSCULAR HGB CONC 33.5 g/dL (32.4-35.8); MONOCYTES % (AUTO) 8 % (2-9); NEUTROPHILS % (AUTO) 61 % (42-75); PLATELET COUNT 213 x10^3/uL (130-400); RED BLOOD COUNT 5.65 x10^6/uL (3.82-5.3); RED CELL DISTRIBUTION WIDTH 13.6 % (9.6-15.2)
[2021-04-05] MEDS ORDERED: METOPROLOL SUCCINATE 50 MG TAB.ER.24H PO SCH (06:00)
[2021-04-05 06:09] LABS: CHLORIDE 108 mmol/L (98-107)
[2021-04-05 06:19] LABS: ANION GAP 5 mmol/L (5-15); CALCIUM 10.2 mg/dL (8.5-10.1); CREATININE 1.62 mg/dL (0.55-1.02)
[2021-04-05] MEDS: INSULIN LISPRO 100 UNITS/ML, PEN SQ-INSULIN SCH ×4 (07:00→21:00)
[2021-04-05 07:16] VITALS: BP 126/74
[2021-04-05] MEDS: SODIUM CHLORIDE FLUSH 10ML SYR IVF SCH ×2 (09:13→21:41)
[2021-04-05] MEDS: OMEPRAZOLE 20 MG CAPSULE.DR PO SCH (09:13)
[2021-04-05] MEDS: APIXABAN 5 MG TABLET PO SCH ×2 (09:13→21:41)
[2021-04-05 13:11] VITALS: BP 126/73
[2021-04-05] MEDS: ATORVASTATIN 80 MG TABLET PO SCH (21:00)
[2021-04-05 21:35] VITALS: BP 130/76
[2021-04-06 02:18] VITALS: BP 109/57
[2021-04-06 06:02] VITALS: BP 123/70
[2021-04-06] MEDS: ASPIRIN 81 MG TABLET EC PO SCH (06:05)
[2021-04-06] MEDS: METOPROLOL SUCCINATE 50 MG TAB.ER.24H PO SCH (06:05)
[2021-04-06 06:24] LABS: ANION GAP 7 mmol/L (5-15); CALCIUM 9.6 mg/dL (8.5-10.1); CHLORIDE 107 mmol/L (98-107); CREATININE 1.47 mg/dL (0.55-1.02)
[2021-04-06 07:23] VITALS: BP 109/67
[2021-04-06] MEDS: INSULIN LISPRO 100 UNITS/ML, PEN SQ-INSULIN SCH ×4 (07:26→21:18)
[2021-04-06] MEDS: OMEPRAZOLE 20 MG CAPSULE.DR PO SCH (07:40)
[2021-04-06] MEDS: APIXABAN 5 MG TABLET PO SCH ×2 (07:40→21:09)
[2021-04-06] MEDS: SODIUM CHLORIDE FLUSH 10ML SYR IVF SCH ×2 (07:41→21:09)
[2021-04-06 12:35] VITALS: BP 126/87
[2021-04-06 19:52] VITALS: BP 138/73
[2021-04-06] MEDS: ATORVASTATIN 80 MG TABLET PO SCH (21:09)
[2021-04-07 00:52] VITALS: BP 155/99
[2021-04-07] MEDS: ASPIRIN 81 MG TABLET EC PO SCH (05:38)
[2021-04-07] MEDS: METOPROLOL SUCCINATE 50 MG TAB.ER.24H PO SCH ×2 (05:38→09:16)
[2021-04-07 06:40] LABS: BASOPHILS % (AUTO) 1 % (0-1); EOSINOPHILS % (AUTO) 2 % (1-7); LYMPHOCYTES % (AUTO) 31 % (22-44); MEAN CORPUSCULAR HEMOGLOBIN 30.3 pg (27.0-34.8); MONOCYTES % (AUTO) 8 % (2-9); NEUTROPHILS % (AUTO) 58 % (42-75); PLATELET COUNT 203 x10^3/uL (130-400); RED BLOOD COUNT 5.28 x10^6/uL (3.82-5.3); RED CELL DISTRIBUTION WIDTH 13.8 % (9.6-15.2)
[2021-04-07 06:58] LABS: ALANINE AMINOTRANSFERASE 30 U/L (12-78); ANION GAP 8 mmol/L (5-15); CHLORIDE 110 mmol/L (98-107)
[2021-04-07 07:00] LABS: ALKALINE PHOSPHATASE 97 U/L (45-117); BILIRUBIN,TOTAL 0.8 mg/dL (0.2-1.0); CREATININE 1.16 mg/dL (0.55-1.02); TOTAL PROTEIN 6.1 g/dL (6.4-8.2)
[2021-04-07] MEDS: SODIUM CHLORIDE FLUSH 10ML SYR IVF SCH ×2 (08:56→20:03)
[2021-04-07] MEDS: APIXABAN 5 MG TABLET PO SCH ×2 (08:56→20:03)
[2021-04-07] MEDS: OMEPRAZOLE 20 MG CAPSULE.DR PO SCH (08:56)
[2021-04-07] MEDS: INSULIN LISPRO 100 UNITS/ML, PEN SQ-INSULIN SCH ×4 (08:56→20:01)
[2021-04-07 10:00] VITALS: BP 125/73
[2021-04-07] MEDS ORDERED: OMNIPAQUE 350 MG/ML, 100ML BOTTLE ONE (11:28)
[2021-04-07] MEDS ORDERED: KETOROLAC 30 MG/1 ML IVPush ONE (12:00)
[2021-04-07 16:00] VITALS: BP 134/81
[2021-04-07] MEDS: FLUTICASONE/VILANTEROL 100-25MCG/INH INH SCH (18:18)
[2021-04-07 19:38] VITALS: BP 116/63
[2021-04-07] MEDS: ATORVASTATIN 80 MG TABLET PO SCH (20:04)
[2021-04-08 01:12] VITALS: BP 156/72
[2021-04-08] MEDS: ASPIRIN 81 MG TABLET EC PO SCH (05:42)
[2021-04-08] MEDS: INSULIN LISPRO 100 UNITS/ML, PEN SQ-INSULIN SCH ×2 (07:00→11:56)
[2021-04-08 07:13] VITALS: BP 141/85
[2021-04-08] MEDS: APIXABAN 5 MG TABLET PO SCH (08:06)
[2021-04-08] MEDS: OMEPRAZOLE 20 MG CAPSULE.DR PO SCH (08:06)
[2021-04-08] MEDS: FLUTICASONE/VILANTEROL 100-25MCG/INH INH SCH (08:06)
[2021-04-08] MEDS: SODIUM CHLORIDE FLUSH 10ML SYR IVF SCH (08:14)
[2021-04-08] MEDS ORDERED: LISINOPRIL 10 MG TABLET PO SCH (09:00)
[2021-04-08] MEDS ORDERED: METO-93 PO (11:37)
[2021-04-08] MEDS ORDERED: SEMAGLUTIDE SC SCH (15:00)
== END 2021-04-08 13:50 | disposition home or self-care (01) | DRG 308 ==
LOC: ED 18:45 → EDIP 21:10 → 5SO 23:28
PROVIDERS: ADMIT Internal Medicine; ATTEND Family Medicine
DX: I48.91 Unspecified atrial fibrillation (principal); N17.0 Acute kidney failure with tubular necrosis; I50.22 Chronic systolic (congestive) heart failure; I25.110 Atherosclerotic heart disease of native coronary artery with unstable angina pectoris; I13.0 Hypertensive heart and chronic kidney disease with heart failure and stage 1 through stage 4 chronic kidney disease, or unspecified chronic kidney disease; I24.8 Other forms of acute ischemic heart disease; N17.9 Acute kidney failure, unspecified; E78.5 Hyperlipidemia, unspecified; E11.22 Type 2 diabetes mellitus with diabetic chronic kidney disease; I25.2 Old myocardial infarction; N18.9 Chronic kidney disease, unspecified; Z79.01 Long term (current) use of anticoagulants; Z79.4 Long term (current) use of insulin; Z79.82 Long term (current) use of aspirin; Z79.899 Other long term (current) drug therapy; Z87.891 Personal history of nicotine dependence; Z90.710 Acquired absence of both cervix and uterus; Z82.5 Family history of asthma and other chronic lower respiratory diseases; Z82.49 Family history of ischemic heart disease and other diseases of the circulatory system; Z90.49 Acquired absence of other specified parts of digestive tract; Z90.721 Acquired absence of ovaries, unilateral; Z88.8 Allergy status to other drugs, medicaments and biological substances
CPT/HCPCS: 36415; 71045; 75572; 80048; 80053; 80061; 82040; 82962; 83036; 83735; 84100; 84439; 84443; 84481; 84484; 85025; 85027; 85520; 93005; 93306; 96374; 99291; G0378; J1885; J2405; Q9967; J1815

== ENCOUNTER → 2021-04-16 | Outpatient (CLI) | payer MEDICARE, OTHER ==
[~2021-04-16] MED LIST changes: +FURO20TA3 PO; +INSU100V35 SC; +OMEP-110 PO; +SEMA0.25 SC; +metoprolol PO
[2021-04-16 11:29] LABS: BASOPHILS % (AUTO) 1 % (0-1); EOSINOPHILS % (AUTO) 2 % (1-7); LYMPHOCYTES % (AUTO) 17 % (22-44); MEAN CORPUSCULAR HEMOGLOBIN 30.2 pg (27.0-34.8); MEAN CORPUSCULAR HGB CONC 33.4 g/dL (32.4-35.8); MEAN PLATELET VOLUME 8.1 fL (7.4-10.4); MONOCYTES % (AUTO) 8 % (2-9); NEUTROPHILS % (AUTO) 71 % (42-75); PLATELET COUNT 202 x10^3/uL (130-400); RED BLOOD COUNT 4.47 x10^6/uL (3.82-5.3); RED CELL DISTRIBUTION WIDTH 14.3 % (9.6-15.2)
[2021-04-16 11:35] LABS: ALBUMIN 3.2 g/dL (3.4-5.0); ANION GAP 6 mmol/L (5-15); CALCIUM 8.5 mg/dL (8.5-10.1); CHLORIDE 107 mmol/L (98-107)
[2021-04-16 11:40] LABS: ALANINE AMINOTRANSFERASE 41 U/L (12-78); ALKALINE PHOSPHATASE 127 U/L (45-117); BILIRUBIN,TOTAL 0.5 mg/dL (0.2-1.0); CHOL/HDL RATIO 2.2; CHOLESTEROL, TOTAL 161 mg/dL (140-239); CREATININE 1.04 mg/dL (0.55-1.02); HDL CHOL % 45 % (28-40); HDL CHOLESTEROL (DIRECT) 73 mg/dL (40-60); LDL CHOLESTEROL,CALCULATED 66 mg/dL (54-169); LDL/HDL RATIO 0.9 (0.5-3.0); TOTAL PROTEIN 6.6 g/dL (6.4-8.2); TRIGLYCERIDES 108 mg/dL (50-200); VLDL CHOLESTEROL 22 mg/dL (0-25)
== END | disposition home or self-care (01) ==
LOC: LAB 10:58
PROVIDERS: ATTEND Internal Medicine Cardiovascular Disease
DX: E11.21 Type 2 diabetes mellitus with diabetic nephropathy (principal); E78.2 Mixed hyperlipidemia; I48.19 Other persistent atrial fibrillation; I48.91 Unspecified atrial fibrillation; I11.0 Hypertensive heart disease with heart failure; I20.9 Angina pectoris, unspecified; I34.0 Nonrheumatic mitral (valve) insufficiency; I50.32 Chronic diastolic (congestive) heart failure
CPT/HCPCS: 36415; 80053; 80061; 82043; 82570; 83036; 85025